=== PATIENT | male | born 1940 | race Asian ===

== ENCOUNTER 2023-03-11 15:50 | Outpatient (CLI) | payer MEDICARE, BC ==
[~2023-03-11] VITALS: Ht 164.5 cm; Wt 81.6 kg
[2023-03-11 16:11] LABS: TOTAL HEMOGLOBIN 12.9 G/dl (14.0-17.9)
[2023-03-11] MEDS ORDERED: albuterol 2.5 MG/3 ML nebule NEB ONE (16:35)
[2023-03-11 16:48] VITALS: PULSE 91; RESP 18; O2SAT 100
== END 2023-03-11 23:59 | disposition home or self-care (01) ==
LOC: RT 15:50
PROVIDERS: ATTEND Internal Medicine
DX: R06.02 Shortness of breath (principal)
CPT/HCPCS: 85018; 94060; 94727; 94729; 94760